=== PATIENT | female | born 1940 | race Caucasian/White ===

== ENCOUNTER 2018-10-16 11:57 | Outpatient (CLI) | payer MEDICARE ==
--- NOTE | 2018-10-16 13:52 | MRI ---
MRI Lower Ext Jt Rt WO Con History: An 25.561 right knee pain Comparison: None. Findings: Medial meniscus: Mild intrameniscal degeneration of the body and posterior horn without dis placed tear. Lateral meniscus: Free edge fraying and tearing of the lateral meniscal body without displaced tear. ACL, PCL, ACL, LCL are all intact. 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 Cartilage: Patellofemoral compartment: Multifocal full-thickness cartilage fissuring and fraying of the medial a nd lateral patellar facets with subcortical reactive marrow changes. Medial compartment: Multifocal full-thickness cartilage defects posterior flexion zone with subcortic al cysts. There is also multifocal 50-75% cartilage defects of the central weightbearing surface medial femoral condyle. Lateral compartment: High grade 75%-80% cartilage loss central articular surface lateral femoral cond yle with accompanying high grade fissures of the lateral femoral condyle. Bones: Subcortical insufficiency fracture of the lateral femoral condyle suprameniscal surface with r eactive marrow edema throughout the lateral femoral condyle. Muscles: Muscle signal and bulk is normal. Moderate bilateral synovitis. Impression: 1. Free edge fraying and volume loss lateral meniscal body with subsequent multifocal high-grade cart ilage defects as well as subcortical insufficiency fracture lateral femoral condyle suprameniscal surface. Stress edema extends throughout the lateral femoral condyle. 2. 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 3. High-grade chondral defects posterior flexion zone medial femoral condyle with subcortical reactiv e cysts.
--- NOTE | 2018-10-19 16:28 | MMO ---
Bilateral MAMMO Bilat Screen [facility]. CLINICAL HISTORY: Patient is 78 years old and is seen for screening. The patient has no family history of breast cancer. The patient has no personal history of cancer. The patient has a history of bilateral Breast reduction in 2006 - benign and left Excisional Biopsy - benign. VIEWS: The views performed were: bilateral craniocaudal with tomosynthesis and bilateral mediolateral oblique with tomosynthesis. FILMS COMPARED: The present examination has been compared to prior imaging studies performed at [facility] on 12/30/2015, and at [facility] on 05/21/2013. MAMMOGRAM FINDINGS: There are scattered fibroglandular densities. Finding 1: There are stable benign appearing calcifications seen in both breasts. Finding 2: There are intramammary lymph nodes seen in both breasts. There are no suspicious masses, suspicious calcifications, or new areas of architectural distortion. IMPRESSION: THERE IS NO MAMMOGRAPHIC EVIDENCE OF MALIGNANCY. A ROUTINE FOLLOW-UP MAMMOGRAM IN 1 YEAR IS RECOMMENDED. THE RESULTS OF THIS EXAM WERE SENT TO THE PATIENT. ACR BI-RADS Category 2 - Benign finding MAMMOGRAPHY NOTE: 1. A negative mammogram report should not delay a biopsy if a dominant of clinically suspicious mass is present. 2. Approximately 10% to 15% of breast cancers are not detected by mammography. 3. Adenosis and dense breasts may obscure an underlying neoplasm.
== END 2018-10-16 11:58 | disposition home or self-care (01) ==
LOC: BICMRI 11:57
PROVIDERS: ATTEND Orthopaedic Surgery Adult Reconstructive Orthopaedic Surgery
DX: M25.561 Pain in right knee (principal); R60.0 Localized edema; M25.861 Other specified joint disorders, right knee
CPT/HCPCS: 77063; 77067

== ENCOUNTER 2020-09-19 15:02 | Inpatient (IN) | payer MEDICARE ==
[2020-09-19 17:19] VITALS: BMI 27.8
[2020-09-19] MEDS: Donepezil HCl 10 MG TAB PO SCH (20:50)
[2020-09-19] MEDS: Escitalopram Oxalate 10 mg Tablet PO SCH (20:50)
[2020-09-19] MEDS: cefTRIAXone\\ROCEPHIN 1 GM in Sodium Chloride 0.9% 100 ML IVPB SCH (20:50)
[2020-09-19] MEDS: Losartan 25 MG TAB PO SCH (20:50)
[2020-09-19] MEDS: Simvastatin 10 MG TAB PO SCH (20:50)
[2020-09-19] MEDS ORDERED: Non-Formulary Item 1 EACH (Mecobalamin [B12 Active] 1,000 MCG Tab.Chew) PO SCH (21:00)
[2020-09-20 05:44] LABS: #Eosinphils 0.1 thou/uL (0.0-0.7); #Lymphocytes 1.2 thou/uL (1.20-3.40); #Monocytes 1.1 thou/uL (0.11-0.59); %Basophils 0.1 % (0.0-1.0); %Eosinophils 1.4 % (0.0-10.0); %Lymphocytes 12.6 % (21.0-51.0); Hemoglobin 10.1 g/dL (12.0-16.0); Mean Corpuscular HGB CONC 32.7 g/dL (32.0-36.0); Mean Corpuscular Hemoglobin 29.9 pg (27.0-31.0); Mean Corpuscular Volume 91.3 fL (78.0-98.0); Mean Platelet Volume 7.9 fL (7.4-10.4); Platelet Count 197 thou/uL (130-400); RBC Distribution Width 12.9 % (11.5-14.5); Red Blood Cell (RBC) Count 3.37 mill/uL (4.20-5.40); White Blood Cell (WBC) Count 9.5 thou/uL (4.8-10.8)
[2020-09-20 06:03] LABS: Anion Gap 10 mmol/L (10-20); BUN (Urea Nitrogen) 14 mg/dL (9.8-20.1); Calc. Creatinine Clearance 54 mL/min (70-130); Calcium 7.7 mg/dL (7.8-10.44); Carbon Dioxide 23 mmol/L (23-31); Chloride 104 mmol/L (98-107); Glucose 104 mg/dL (83-110); Potassium 4.1 mmol/L (3.5-5.1); Sodium 133 mmol/L (136-145)
[2020-09-20] MEDS: Enoxaparin Sodium 40 MG/0.4 ML SYRINGE SC SCH (09:22)
[2020-09-20] MEDS: Escitalopram Oxalate 10 mg Tablet PO SCH ×2 (09:22→20:37)
[2020-09-20] MEDS: Saccharomyces boulardii 250 MG CAP PO SCH (09:22)
[2020-09-20] MEDS: Cholecalciferol 1,000 UNITS (25 MCG) TAB PO SCH (09:22)
[2020-09-20] MEDS: Multivit, Therapeutic 1 TAB PO SCH (09:23)
[2020-09-20] MEDS: Ascorbic Acid 500 mg Chewable Tablet PO SCH (09:23)
[2020-09-20] MEDS ORDERED: cefTRIAXone\\ROCEPHIN 1 GM in Sodium Chloride 0.9% 100 ML IVPB SCH (11:00)
[2020-09-20] MEDS ORDERED: Iopamidol-370 76% 500 ML 1 ML ONE (12:04)
[2020-09-20] MEDS: Acetaminophen 325 MG TAB PO PRN ×2 (14:39→23:45)
[2020-09-20 18:53] LABS: ALT (SGPT) 17 U/L (8-55); AST (SGOT) 18 U/L (5-34); Albumin 3.3 g/dL (3.4-4.8); Alkaline Phosphatase 66 U/L (40-110); Anion Gap 11 mmol/L (10-20); BUN (Urea Nitrogen) 13 mg/dL (9.8-20.1); Bilirubin, Total 0.4 mg/dL (0.2-1.2); Calc. Creatinine Clearance 53 mL/min (70-130); Calcium 8.1 mg/dL (7.8-10.44); Carbon Dioxide 25 mmol/L (23-31); Chloride 99 mmol/L (98-107); Globulin 2.7 g/dL (2.4-3.5); Glucose 108 mg/dL (83-110); Potassium 3.6 mmol/L (3.5-5.1); Sodium 131 mmol/L (136-145)
[2020-09-20] MEDS: Simvastatin 10 MG TAB PO SCH (20:35)
[2020-09-20] MEDS: Donepezil HCl 10 MG TAB PO SCH (20:36)
[2020-09-20] MEDS: Losartan 25 MG TAB PO SCH (20:36)
[2020-09-20] MEDS: cefTRIAXone\\ROCEPHIN 1 GM in Sodium Chloride 0.9% 100 ML IVPB SCH (20:37)
[2020-09-21] MEDS ORDERED: hydrALAZINE 20 MG/ML VIAL SLOW IVP PRN (00:25)
[2020-09-21] MEDS ORDERED: Ibuprofen 200 MG TAB PO SCH (01:15)
[2020-09-21 05:26] LABS: Bacteria/HPF None Seen HPF (None Seen); Bilirubin Negative (Negative); Blood, Urine Negative (Negative); Clarity Clear (Clear); Glucose, Urine (Dipstick) Normal (Negative); Ketone, Urine Trace mg/dL (Negative); Leukocyte Negative Leu/uL (Negative); Nitrite Negative (Negative); Protein, Urine (Dipstick) Negative (Neg-Trace); RBC/HPF 0-3 HPF (0-3); Squamous Epithelial None Seen HPF (0-3); Urobilinogen Normal mg/dL (Less than 2); WBC/HPF 0-3 HPF (0-3); pH, Urine 6.5 (5.0-9.0)
[2020-09-21] MEDS ORDERED: Sodium Chloride 0.9% 1,000 ML IV SCH (08:00)
[2020-09-21] MEDS: Saccharomyces boulardii 250 MG CAP PO SCH (09:19)
[2020-09-21] MEDS: Escitalopram Oxalate 10 mg Tablet PO SCH ×2 (09:19→21:25)
[2020-09-21] MEDS: Enoxaparin Sodium 40 MG/0.4 ML SYRINGE SC SCH (09:20)
[2020-09-21] MEDS: Multivit, Therapeutic 1 TAB PO SCH (09:22)
[2020-09-21] MEDS: Ascorbic Acid 500 mg Chewable Tablet PO SCH (09:22)
[2020-09-21] MEDS: Cholecalciferol 1,000 UNITS (25 MCG) TAB PO SCH (09:22)
[2020-09-21] MEDS: Acetaminophen 325 MG TAB PO PRN (13:46)
[2020-09-21 14:42] LABS: Bacteria/HPF None Seen HPF (None Seen); Bilirubin Negative (Negative); Blood, Urine Negative (Negative); Clarity Clear (Clear); Glucose, Urine (Dipstick) Normal (Negative); Ketone, Urine Negative (Negative); Leukocyte Negative Leu/uL (Negative); Nitrite Negative (Negative); Protein, Urine (Dipstick) 50 mg/dL (Neg-Trace); RBC/HPF 0-3 HPF (0-3); Specific Gravity, Urine 1.022 (1.002-1.036); Squamous Epithelial 0-3 HPF (0-3); Urobilinogen Normal mg/dL (Less than 2); pH, Urine 7.5 (5.0-9.0)
[2020-09-21] MEDS: Simvastatin 10 MG TAB PO SCH (21:25)
[2020-09-21] MEDS: Donepezil HCl 10 MG TAB PO SCH (21:25)
[2020-09-21] MEDS: Losartan 25 MG TAB PO SCH (21:25)
[2020-09-22] MEDS: Acetaminophen 325 MG TAB PO PRN (04:15)
[2020-09-22] MEDS: Escitalopram Oxalate 10 mg Tablet PO SCH ×2 (06:55→09:07)
[2020-09-22] MEDS: Simvastatin 10 MG TAB PO SCH (06:55)
[2020-09-22] MEDS: Losartan 25 MG TAB PO SCH (06:55)
[2020-09-22] MEDS: Donepezil HCl 10 MG TAB PO SCH (06:55)
[2020-09-22] MEDS: Cholecalciferol 1,000 UNITS (25 MCG) TAB PO SCH (09:06)
[2020-09-22] MEDS: Enoxaparin Sodium 40 MG/0.4 ML SYRINGE SC SCH (09:06)
[2020-09-22] MEDS: Saccharomyces boulardii 250 MG CAP PO SCH (09:06)
[2020-09-22] MEDS: Ascorbic Acid 500 mg Chewable Tablet PO SCH (09:07)
[2020-09-22] MEDS: Multivit, Therapeutic 1 TAB PO SCH (09:07)
[2020-09-22 09:11] LABS: Anion Gap 16 mmol/L (10-20); BUN (Urea Nitrogen) 12 mg/dL (9.8-20.1); Calc. Creatinine Clearance 57 mL/min (70-130); Calcium 8.6 mg/dL (7.8-10.44); Carbon Dioxide 22 mmol/L (23-31); Chloride 100 mmol/L (98-107); Glucose 100 mg/dL (83-110); Potassium 3.5 mmol/L (3.5-5.1); Sodium 134 mmol/L (136-145)
[2020-09-22 11:41] VITALS: BP 132/74; TEMP 98.3
== END 2020-09-22 14:20 | disposition home or self-care (01) | DRG 690 ==
LOC: SURG A 16:33 → OBSVTOIN 18:18
PROVIDERS: ADMIT Internal Medicine; ATTEND Internal Medicine
DX: N39.0 Urinary tract infection, site not specified (principal); Z66 Do not resuscitate; E86.0 Dehydration; Z20.822 Contact with and (suspected) exposure to COVID-19; F03.90 Unspecified dementia, unspecified severity, without behavioral disturbance, psychotic disturbance, mood disturbance, and anxiety; I10 Essential (primary) hypertension; F32.9 Major depressive disorder, single episode, unspecified; K52.9 Noninfective gastroenteritis and colitis, unspecified; R63.0 Anorexia; Z90.710 Acquired absence of both cervix and uterus; Z68.27 Body mass index [BMI] 27.0-27.9, adult; Z79.899 Other long term (current) drug therapy; Z88.0 Allergy status to penicillin
CPT/HCPCS: 36415; 71046; 74177; 80048; 81001; 81015; 83630; 85025; 87040; 87045; 87046; 87077; 87086; 87186; 87324; 87328; 87329; 87427; 87449; 87798; J0360; J0696; J1650; J3490; Q9967

== ENCOUNTER 2020-09-29 19:46 | Inpatient (IN) | payer MEDICARE ==
[~2020-09-29 19:46] MED LIST: Heparin 1,000 UNITS/ML VIAL ONE
[2020-09-29] MEDS ORDERED: Acetaminophen 500 MG TAB ONE (20:24)
[2020-09-29] MEDS ORDERED: cefTRIAXone\\ROCEPHIN 1 GM VIAL ONE (20:24)
[2020-09-29 20:35] LABS: #Eosinphils 0.1 thou/uL (0.0-0.7); #Lymphocytes 1.2 thou/uL (1.20-3.40); #Monocytes 1.1 thou/uL (0.11-0.59); #Neutrophils 16.1 thou/uL (1.40-6.50); %Basophils 0.1 % (0.0-1.0); %Eosinophils 0.6 % (0.0-10.0); %Lymphocytes 6.2 % (21.0-51.0); %Monocytes 5.9 % (0.0-10.0); %Neutrophils 87.2 % (42.0-75.0); Hemoglobin 11.9 g/dL (12.0-16.0); Mean Corpuscular HGB CONC 34.7 g/dL (32.0-36.0); Mean Corpuscular Hemoglobin 30.9 pg (27.0-31.0); Mean Platelet Volume 6.7 fL (7.4-10.4); Platelet Count 413 thou/uL (130-400); RBC Distribution Width 13.6 % (11.5-14.5); Red Blood Cell (RBC) Count 3.87 mill/uL (4.20-5.40); White Blood Cell (WBC) Count 18.4 thou/uL (4.8-10.8)
[2020-09-29 20:57] LABS: ALT (SGPT) 25 U/L (8-55); AST (SGOT) 17 U/L (5-34); Alkaline Phosphatase 82 U/L (40-110); Anion Gap 14 mmol/L (10-20); BUN (Urea Nitrogen) 26 mg/dL (9.8-20.1); Bilirubin, Total 0.7 mg/dL (0.2-1.2); Calc. Creatinine Clearance 0 mL/min (70-130); Calcium 9.4 mg/dL (7.8-10.44); Carbon Dioxide 23 mmol/L (23-31); Chloride 97 mmol/L (98-107); Globulin 3.3 g/dL (2.4-3.5); Glucose 119 mg/dL (83-110); Potassium 4.2 mmol/L (3.5-5.1); Protein, Total 7.3 g/dL (5.8-8.1); Sodium 130 mmol/L (136-145)
[2020-09-29 21:17] LABS: Bacteria/HPF 3+ HPF (None Seen); Bilirubin Negative (Negative); Blood, Urine Negative (Negative); Clarity Clear (Clear); Glucose, Urine (Dipstick) Normal (Negative); Ketone, Urine Negative (Negative); Leukocyte 75 Leu/uL (Negative); Nitrite 2+ (Negative); Protein, Urine (Dipstick) Negative (Neg-Trace); RBC/HPF 0-3 HPF (0-3); Specific Gravity, Urine 1.017 (1.002-1.036); Squamous Epithelial 0-3 HPF (0-3); Urobilinogen Normal mg/dL (Less than 2); WBC/HPF 21-50 HPF (0-3); pH, Urine 5.5 (5.0-9.0)
[2020-09-29] MEDS ORDERED: MEROPENEM 1 GM/50 ML 1 GM in Premix Bag 1 BAG IVPB SCH (22:45)
[2020-09-30] MEDS ORDERED: Melatonin 3 MG TAB PO SCH (00:30)
[2020-09-30 00:34] VITALS: BMI 28.3
[2020-09-30 02:11] LABS: SARS-CoV-2 NAA Rapid Test Not Detected (NotDetected)
[2020-09-30] MEDS ORDERED: HYDROcodone/Acetaminophen 5/325 mg Tablet PO PRN (03:06)
[2020-09-30] MEDS: Acetaminophen 325 MG TAB PO PRN ×2 (05:27→15:48)
[2020-09-30] MEDS: MEROPENEM 1 GM/50 ML 1 GM in Premix Bag 1 BAG IVPB SCH ×3 (05:28→21:29)
[2020-09-30 06:06] LABS: #Eosinphils 0.1 thou/uL (0.0-0.7); #Lymphocytes 1.3 thou/uL (1.20-3.40); #Monocytes 1.3 thou/uL (0.11-0.59); #Neutrophils 12.7 thou/uL (1.40-6.50); %Basophils 0.1 % (0.0-1.0); %Eosinophils 0.5 % (0.0-10.0); %Lymphocytes 8.2 % (21.0-51.0); %Monocytes 8.4 % (0.0-10.0); %Neutrophils 82.8 % (42.0-75.0); Hemoglobin 11.1 g/dL (12.0-16.0); Mean Corpuscular HGB CONC 33.7 g/dL (32.0-36.0); Mean Corpuscular Hemoglobin 30.5 pg (27.0-31.0); Mean Corpuscular Volume 90.6 fL (78.0-98.0); Mean Platelet Volume 6.8 fL (7.4-10.4); Platelet Count 393 thou/uL (130-400); RBC Distribution Width 13.5 % (11.5-14.5); Red Blood Cell (RBC) Count 3.63 mill/uL (4.20-5.40); White Blood Cell (WBC) Count 15.4 thou/uL (4.8-10.8)
[2020-09-30 06:26] LABS: Anion Gap 13 mmol/L (10-20); BUN (Urea Nitrogen) 20 mg/dL (9.8-20.1); Calc. Creatinine Clearance 51 mL/min (70-130); Calcium 8.5 mg/dL (7.8-10.44); Carbon Dioxide 25 mmol/L (23-31); Chloride 102 mmol/L (98-107); Glucose 115 mg/dL (83-110); Potassium 4.5 mmol/L (3.5-5.1); Sodium 135 mmol/L (136-145)
[2020-09-30] MEDS: Enoxaparin Sodium 40 MG/0.4 ML SYRINGE SC SCH (09:01)
[2020-09-30] MEDS ORDERED: Scopolamine 1.5 mg/72 hour Patch TOP SCH (12:15)
[2020-09-30] MEDS: Simvastatin 10 MG TAB PO SCH (20:25)
[2020-09-30] MEDS: Escitalopram Oxalate 10 mg Tablet PO SCH (20:25)
[2020-09-30] MEDS: Donepezil HCl 10 MG TAB PO SCH (20:25)
[2020-09-30] MEDS ORDERED: Losartan 25 MG TAB PO SCH (21:00)
[2020-09-30] MEDS: Estrogens, Conjugated 30 GM TUBE VAG SCH (21:31)
[2020-09-30] MEDS ORDERED: Ondansetron PF 4 MG/2 ML Vial IVP PRN (23:30)
[2020-10-01 05:06] LABS: #Lymphocytes 1.3 thou/uL (1.20-3.40); #Monocytes 1.1 thou/uL (0.11-0.59); #Neutrophils 11.3 thou/uL (1.40-6.50); %Eosinophils 0.2 % (0.0-10.0); %Lymphocytes 9.4 % (21.0-51.0); %Monocytes 8.3 % (0.0-10.0); %Neutrophils 82.2 % (42.0-75.0); Hemoglobin 10.6 g/dL (12.0-16.0); Mean Corpuscular HGB CONC 32.6 g/dL (32.0-36.0); Mean Corpuscular Hemoglobin 29.3 pg (27.0-31.0); Mean Corpuscular Volume 89.9 fL (78.0-98.0); Mean Platelet Volume 6.9 fL (7.4-10.4); Platelet Count 360 thou/uL (130-400); RBC Distribution Width 13.5 % (11.5-14.5); Red Blood Cell (RBC) Count 3.61 mill/uL (4.20-5.40); White Blood Cell (WBC) Count 13.8 thou/uL (4.8-10.8)
[2020-10-01 05:25] LABS: Anion Gap 11 mmol/L (10-20); BUN (Urea Nitrogen) 17 mg/dL (9.8-20.1); Calc. Creatinine Clearance 55 mL/min (70-130); Calcium 8.5 mg/dL (7.8-10.44); Carbon Dioxide 24 mmol/L (23-31); Chloride 99 mmol/L (98-107); Glucose 102 mg/dL (83-110); Potassium 3.7 mmol/L (3.5-5.1); Sodium 130 mmol/L (136-145)
[2020-10-01] MEDS: MEROPENEM 1 GM/50 ML 1 GM in Premix Bag 1 BAG IVPB SCH ×3 (05:40→21:20)
[2020-10-01] MEDS: Enoxaparin Sodium 40 MG/0.4 ML SYRINGE SC SCH (08:00)
[2020-10-01] MEDS: Escitalopram Oxalate 10 mg Tablet PO SCH ×2 (09:21→21:20)
[2020-10-01] MEDS: Saccharomyces boulardii 250 MG CAP PO SCH (09:21)
[2020-10-01] MEDS: Acetaminophen 325 MG TAB PO PRN (18:50)
[2020-10-01] MEDS: Simvastatin 10 MG TAB PO SCH (21:20)
[2020-10-01] MEDS: Donepezil HCl 10 MG TAB PO SCH (21:20)
[2020-10-01] MEDS: Estrogens, Conjugated 30 GM TUBE VAG SCH (21:25)
[2020-10-02 05:38] LABS: #Eosinphils 0.1 thou/uL (0.0-0.7); #Monocytes 0.8 thou/uL (0.11-0.59); #Neutrophils 5.9 thou/uL (1.40-6.50); %Basophils 0.1 % (0.0-1.0); %Eosinophils 1.2 % (0.0-10.0); %Lymphocytes 12.3 % (21.0-51.0); %Neutrophils 76.4 % (42.0-75.0); Hemoglobin 12.5 g/dL (12.0-16.0); Mean Corpuscular HGB CONC 32.7 g/dL (32.0-36.0); Mean Corpuscular Hemoglobin 29.4 pg (27.0-31.0); Mean Corpuscular Volume 89.8 fL (78.0-98.0); Mean Platelet Volume 6.9 fL (7.4-10.4); Platelet Count 276 thou/uL (130-400); RBC Distribution Width 13.5 % (11.5-14.5); Red Blood Cell (RBC) Count 4.27 mill/uL (4.20-5.40); White Blood Cell (WBC) Count 7.7 thou/uL (4.8-10.8)
[2020-10-02] MEDS: MEROPENEM 1 GM/50 ML 1 GM in Premix Bag 1 BAG IVPB SCH (05:57)
[2020-10-02 06:00] LABS: Anion Gap 10 mmol/L (10-20); BUN (Urea Nitrogen) 17 mg/dL (9.8-20.1); Calc. Creatinine Clearance 58 mL/min (70-130); Calcium 8.2 mg/dL (7.8-10.44); Carbon Dioxide 28 mmol/L (23-31); Chloride 98 mmol/L (98-107); Glucose 97 mg/dL (83-110); Potassium 3.9 mmol/L (3.5-5.1); Sodium 132 mmol/L (136-145)
[2020-10-02] MEDS: Enoxaparin Sodium 40 MG/0.4 ML SYRINGE SC SCH (08:22)
[2020-10-02] MEDS: Escitalopram Oxalate 10 mg Tablet PO SCH (08:22)
[2020-10-02] MEDS: Saccharomyces boulardii 250 MG CAP PO SCH (08:22)
[2020-10-02 11:29] VITALS: BP 110/53; TEMP 98
[2020-10-02] MEDS: Acetaminophen 325 MG TAB PO PRN (11:30)
[2020-10-02 13:50] LABS: Reference Lab Name LABCORP
[2020-10-02 13:51] LABS: Ref Lab Test Ordered 1 DRUG SUSC
[2020-10-02] MEDS ORDERED: Ertapenem 1 GM in Sodium Chloride 0.9% 100 ML IVPB SCH (14:00)
== END 2020-10-02 15:15 | disposition home or self-care (01) | DRG 872 ==
LOC: ERS 19:46 → SJJU 22:44
PROVIDERS: ADMIT Student in an Organized Health Care Education/Training Program; ATTEND Internal Medicine
PROC: 02HV33Z Insertion of Infusion Device into Superior Vena Cava, Percutaneous Approach (ICD-10-PCS; principal; 2020-10-01)
PROC: B548ZZA Ultrasonography of Superior Vena Cava, Guidance (ICD-10-PCS; 2020-10-01)
DX: A41.51 Sepsis due to Escherichia coli [E. coli] (principal); N39.0 Urinary tract infection, site not specified; F11.20 Opioid dependence, uncomplicated; Z16.12 Extended spectrum beta lactamase (ESBL) resistance; E87.1 Hypo-osmolality and hyponatremia; Z20.822 Contact with and (suspected) exposure to COVID-19; E78.5 Hyperlipidemia, unspecified; M19.90 Unspecified osteoarthritis, unspecified site; N95.2 Postmenopausal atrophic vaginitis; F03.90 Unspecified dementia, unspecified severity, without behavioral disturbance, psychotic disturbance, mood disturbance, and anxiety; D63.1 Anemia in chronic kidney disease; E86.0 Dehydration; N18.30 Chronic kidney disease, stage 3 unspecified; I12.9 Hypertensive chronic kidney disease with stage 1 through stage 4 chronic kidney disease, or unspecified chronic kidney disease; Z96.659 Presence of unspecified artificial knee joint; Z90.710 Acquired absence of both cervix and uterus; Z88.0 Allergy status to penicillin; Z79.899 Other long term (current) drug therapy; Z87.440 Personal history of urinary (tract) infections
CPT/HCPCS: 36415; 36569; 51701; 71045; 80048; 80053; 81003; 81015; 83605; 83735; 85025; 87040; 87077; 87086; 87149; 87186; 90471; 90732; 96365; 96367; C1751; G0009; J0696; J1335; J1644; J1650; J2185; J2405; J3490; U0002; U0005

== ENCOUNTER 2022-01-07 17:26 | Emergency (ER) | payer MEDICARE | END 2022-01-07 18:40 | disposition home or self-care (01) | LOC: ERS 17:26 | DX: S00.03XA Contusion of scalp, initial encounter (principal); I10 Essential (primary) hypertension; E78.5 Hyperlipidemia, unspecified; W18.30XA Fall on same level, unspecified, initial encounter | CPT/HCPCS: 70450; 72125 ==

== ENCOUNTER 2022-07-07 07:46 | Outpatient (CLI) | payer MEDICARE | END 2022-07-07 07:47 | disposition home or self-care (01) | LOC: NM 07:46 | PROVIDERS: ATTEND Psychiatry & Neurology Neurology | DX: F09 Unspecified mental disorder due to known physiological condition (principal); R26.89 Other abnormalities of gait and mobility | CPT/HCPCS: 78803; A9584 ×2 ==